=== PATIENT | female | born 1940 | race Caucasian/White ===

== ENCOUNTER 2018-11-05 19:24 | Emergency (ER) | payer MEDICARE ==
[~2018-11-05] VITALS: Ht 157.5 cm; Wt 61.2 kg
[2018-11-05] MEDS ORDERED: CITA20 PO (19:59)
[2018-11-05] MEDS ORDERED: LOSARTAN-HCTZ1 EAC1 PO (19:59)
[2018-11-05] MEDS ORDERED: SIMV40 PO (19:59)
[2018-11-05] MEDS ORDERED: PANT40 PO (19:59)
[2018-11-05] MEDS ORDERED: Protonix40 MG PO (20:31)
== END 2018-11-05 20:38 | disposition home or self-care (01) ==
LOC: ER 19:24
DX: K44.9 Diaphragmatic hernia without obstruction or gangrene (principal); Z88.1 Allergy status to other antibiotic agents; Z79.899 Other long term (current) drug therapy; I10 Essential (primary) hypertension; Z87.891 Personal history of nicotine dependence
CPT/HCPCS: 99281

== ENCOUNTER 2018-11-20 18:27 | Emergency (ER) | payer MEDICARE ==
[~2018-11-20] VITALS: Ht 157.5 cm; Wt 63.5 kg
[~2018-11-20 18:27] MED LIST: CITA20 PO; LOSARTAN-HCTZ1 EAC1 PO; PANT40 PO; Protonix40 MG PO; SIMV40 PO
[2018-11-21] MEDS ORDERED: Norco 5-325 Ta1 EACH PO (00:54)
== END 2018-11-21 01:10 | disposition home or self-care (01) ==
LOC: ER 18:27
DX: S52.501A Unspecified fracture of the lower end of right radius, initial encounter for closed fracture (principal); I10 Essential (primary) hypertension; Z88.1 Allergy status to other antibiotic agents; Z79.899 Other long term (current) drug therapy; Z87.891 Personal history of nicotine dependence; W19.XXXA Unspecified fall, initial encounter
CPT/HCPCS: 29105; 73090; 73110; 73502; 73564; 99283-25; A9270; A9270-GY

== ENCOUNTER → 2019-03-13 | Outpatient (CLI) | payer MEDICARE ==
[~2019-03-13] MED LIST changes: +Norco 5-325 Ta1 EACH PO
[2019-03-13 12:42] LABS: BASOPHILS ABSOLUTE AUTO 0.02 K/mm3 (0.00-0.23); BASOPHILS PERCENT AUTO 0 % (0-2); EOSINOPHILS ABSOLUTE AUTO 0.15 K/mm3 (0.00-0.68); EOSINOPHILS PERCENT AUTO 2 % (0-6); Hematocrit 31.3 % (33.0-51.0); Hemoglobin 10.4 g/dL (11.5-16.0); IMMATURE GRAN ABSOLUTE AUTO 0.05 K/mm3 (0.00-0.10); IMMATURE GRAN PERCENT AUTO 1 % (0-1); LYMPHOCYTES ABSOLUTE AUTO 1.23 K/mm3 (0.84-5.20); LYMPHOCYTES PERCENT AUTO 15 % (21-46); MONOCYTES ABSOLUTE AUTO 0.62 K/mm3 (0.16-1.47); MONOCYTES PERCENT AUTO 8 % (4-13); Mean Corpuscular HGB Conc 33.2 g/dL (31.5-36.5); Mean Corpuscular Volume 96 fL (80-100); Mean Platelet Volume 9.6 fL (9.1-12.4); NEUTROPHILS ABSOLUTE AUTO 5.91 K/mm3 (1.96-9.15); NEUTROPHILS PERCENT AUTO 74 % (41-73); Platelet Count 251 K/mm3 (150-400); RDW Coefficient Variation 13.7 % (11.7-14.2); RDW Standard Deviation 48.4 fL (35.1-46.3); Red Blood Cell Count 3.25 M/mm3 (3.80-5.20); White Blood Cell Count 7.98 K/mm3 (4.00-11.30)
[2019-03-13 13:19] LABS: Alanine Aminotransfer (ALT/SGP 19 U/L (12-78); Albumin, Blood 3.1 g/dL (3.4-5.0); Albumin/Globulin Ratio 0.8 (0.8-1.8); Alk Phos 54 U/L (50-136); Anion Gap 5 mmol/L (6-16); Aspartate Aminotrans (AST/SGOT 31 U/L (12-37); Bilirubin, Total 1.1 mg/dL (0.1-1.0); Blood Urea Nitrogen 14 mg/dL (8-24); Bun/Creatinine Ratio 29.5 (12.0-20.0); CO2, Blood 31 mmol/L (21-32); Calcium, Blood 9.3 mg/dL (8.5-10.1); Chloride, Blood 98 mmol/L (98-108); Creatinine, Blood 0.48 mg/dL (0.40-1.00); Globulin, Blood 3.9 g/dL (2.2-4.0); Glomerular Filtration Rate >60 (60-); Glucose, Blood 89 mg/dL (70-99); Potassium, Blood 3.8 mmol/L (3.5-5.5); Sodium, Blood 134 mmol/L (136-145)
== END | disposition home or self-care (01) ==
LOC: LAB UVN 12:33 → EDSTATUS 13:08
DX: E78.5 Hyperlipidemia, unspecified (principal); I10 Essential (primary) hypertension
CPT/HCPCS: 80053; 85025

== ENCOUNTER → 2019-04-02 | Outpatient (CLI) | payer MEDICARE | END | disposition home or self-care (01) | LOC: LAB SHORT 17:40 → LAB SRC 17:40 → LAB SHORT 04-03 08:21 | DX: S72.001D Fracture of unspecified part of neck of right femur, subsequent encounter for closed fracture with routine healing (principal) | CPT/HCPCS: 87070; 87075; 87205 ==

== ENCOUNTER 2019-09-14 11:58 | Emergency (ER) | payer MEDICARE ==
[~2019-09-14] VITALS: Ht 157.5 cm; Wt 63.5 kg
[2019-09-14] MEDS ORDERED: HYDR1TAB94 PO (14:10)
== END 2019-09-14 15:22 | disposition home or self-care (01) ==
LOC: ER 11:58
DX: S52.501A Unspecified fracture of the lower end of right radius, initial encounter for closed fracture (principal); I10 Essential (primary) hypertension; Z88.2 Allergy status to sulfonamides; Z88.1 Allergy status to other antibiotic agents; Z79.899 Other long term (current) drug therapy; Z87.891 Personal history of nicotine dependence; W01.0XXA Fall on same level from slipping, tripping and stumbling without subsequent striking against object, initial encounter
CPT/HCPCS: 25605; 73110; 99283-25; A9270-GY

== ENCOUNTER 2019-09-18 06:02 | Day surgery (SDC) | payer MEDICARE ==
[~2019-09-18] VITALS: Ht 157.5 cm; Wt 65.5 kg
[~2019-09-18 06:02] MED LIST changes: +HYDR1TAB94 PO
== END 2019-09-18 10:56 | disposition home or self-care (01) ==
LOC: ORSCMMR 06:02 → ORD 11:45 → ORSCMMR 11:45
PROVIDERS: Orthopaedic Surgery
PROC: 0PSH04Z Reposition Right Radius with Internal Fixation Device, Open Approach (ICD-10-PCS; principal; 2019-09-18 07:30)
DX: S52.501A Unspecified fracture of the lower end of right radius, initial encounter for closed fracture (principal); I10 Essential (primary) hypertension; G47.33 Obstructive sleep apnea (adult) (pediatric); Z79.899 Other long term (current) drug therapy
CPT/HCPCS: 73110; C1713; J0330; J0690; J1100; J2250; J2405; J2704; J2710; J3010; J7120

== ENCOUNTER 2020-02-08 06:09 | Day surgery (SDC) | payer MEDICARE ==
[~2020-02-08] VITALS: Ht 157.5 cm; Wt 66.0 kg
[~2020-02-08 06:09] MED LIST changes: +ALEN70 PO; +FAMO20 PO; +IBUP800 PO; +Micardis80 MG PO; +SODCHL1 PO
[2020-02-08] MEDS ORDERED: FAMO20 PO (06:40)
--- NOTE | 2020-02-08 07:04 | NUR ---
Patient up to Ambulate independently. Gait steady. Surgical site prepped with 2% Chlorhexidine cloth wipe. History, Chart, Medications and Allergies reviewed before start of procedure. Lungs clear T/O to Auscultation. Patient confirms NPO status and agrees with scheduled surgery. Pre-Op teaching done. Pt verbalizes understanding. Patient reports completing Chlorhexadine shower X2 prior to admission to hospital.
--- NOTE | 2020-02-08 09:15 | NUR ---
02/08/20 0915 Morales [place] UNABLE TO CHART MEDS. PROFILE LOCKED. ANCEF 2GM GIVEN BY [email or web address] AT 0745. COCKTAIL INJECTED RIGHT KNEE AT 0913. TXA IV GIVEN AT 0914 BY [email or web address]. IV RIGHT ARM.
--- NOTE | 2020-02-08 11:14 | NUR ---
PT ARRIVED TO THE ROOM FROM PACU AT APPROXIMATELY 1045. PT IS DROWSY, BUT AWAKENS WHEN SPOKEN TO AND IS ORIENTED. SHE DENIES PAIN. SHE IS ABLE TO FLEX HER QUADRICEP MUSCLES SLIGHTLY BUT HAS DECREASED SENSATION TO BLE. SINCE PT IS DROWSY RT WAS CONTACTED TO SET UP HER HOME CPAP AND PLACE CONTINUOUS PULSE OXIMETRY. WILL CONTINUE TO MONITOR.
--- NOTE | 2020-02-08 17:14 | NUR ---
POD0 TKA ROBOTIC TRANSFERED AT 1045. PT DROWSY UPON TRANSFERNG FORM PACU TO SURG FLOOR. PT ON 3L O2, W/ HX APNEA. CPAP REQUESTED FROM RESP THERAPIST. SHE IS ON CPAP AT SLEEP. 02 SATS ON 85 TO 90 ON RA AT REST. PAIN LEVEL AT 6/10, WELL CONTROLLED WITH TORADOL, JOHNNY AND TYLENOL, DECREASED AT 3/10. PT ABLE TO WIGGLE BILAT TOES. ABLE TO AMBULATE WITH MINIMAL ASSIST W/ SUPERVISION FROM BED TO BEDSIDE COMMODE, TOLERATE WELL. UA OUTPUT OF 1100 ML. REG DIET, ABLE TO TOLERATE CEREAL, MILK AND COFFEE DENIES N/V. PT USES CANE/WALKER AT HOME, LIVES ALONE AT [facility]. PT WANTS HER DAUGHTERS PRESENCE WHEN PHYSICIAN AND THERAPIST COME IN FOR HER CARE.
--- NOTE | 2020-02-08 17:49 | NUR ---
SHIFT SUMMARY PT IS POD#0 FROM A R ROBOTIC TKA WITH DR. CRUZ. PT HAS BEEN ABLE TO WORK WITH THERAPY. SHE IS A 1 PERSON ASSIST WITH GAIT BELT AND WALKER FOR AMBULATION. PAIN HAS BEEN MANAGED WITH OXYCODONE, TYLENOL AND TORADOL. PT IS TOLERATING PO AND SHE HAS BEEN ABLE TO VOID. VSS. DOCUMENTATION BY WILLY ERICKSON REVIEWED. WILL MONITOR UNTIL REPORT TO ONCOMING RN.
[2020-02-09 04:24] LABS: BASOPHILS ABSOLUTE AUTO 0.01 K/mm3 (0.00-0.23); BASOPHILS PERCENT AUTO 0 % (0-2); EOSINOPHILS PERCENT AUTO 0 % (0-6); Hematocrit 33.8 % (33.0-51.0); IMMATURE GRAN ABSOLUTE AUTO 0.05 K/mm3 (0.00-0.10); IMMATURE GRAN PERCENT AUTO 0 % (0-1); LYMPHOCYTES ABSOLUTE AUTO 1.04 K/mm3 (0.84-5.20); LYMPHOCYTES PERCENT AUTO 9 % (21-46); MONOCYTES ABSOLUTE AUTO 0.64 K/mm3 (0.16-1.47); MONOCYTES PERCENT AUTO 5 % (4-13); Mean Corpuscular HGB 32.2 pg (26.0-34.0); Mean Corpuscular HGB Conc 32.5 g/dL (31.5-36.5); Mean Corpuscular Volume 99 fL (80-100); Mean Platelet Volume 11.4 fL (9.1-12.4); NEUTROPHILS ABSOLUTE AUTO 10.49 K/mm3 (1.96-9.15); NEUTROPHILS PERCENT AUTO 86 % (41-73); Platelet Count 127 K/mm3 (150-400); RDW Coefficient Variation 13.2 % (11.7-14.2); RDW Standard Deviation 48.1 fL (35.1-46.3); Red Blood Cell Count 3.42 M/mm3 (3.80-5.20); White Blood Cell Count 12.23 K/mm3 (4.00-11.30)
--- NOTE | 2020-02-09 04:30 | NUR ---
SHIFT SUMMARY R ROBOTIC ASSIST TKA, A/O, VSS, AMBULATES WELL INDEPENDENTLY W/ 1 PERSON STANDBY ASSIST WHEN UP, TOLERATING PO, VOIDING WELL, USES CALL LIGHT APPROPRIATLY. REQUESTED DAUGHTER BE HERE FOR PT TODAY AND WHEN DR ROUNDS. CPAP ON WHEN IN BED, 3L O2 IN USE W/ CPAP TO MAINTAIN O2 SAT OVER 96. CALL LIGHT IN REACH, WILL REPORT TO ONCOMING DAY RN.
[2020-02-09 04:42] LABS: Anion Gap 4 mmol/L (6-16); Blood Urea Nitrogen 14 mg/dL (8-24); Bun/Creatinine Ratio 27.8 (12.0-20.0); CO2, Blood 28 mmol/L (21-32); Chloride, Blood 103 mmol/L (98-108); Glomerular Filtration Rate >60 (60-); Glucose, Blood 118 mg/dL (70-99); Magnesium, Blood 2.1 mg/dL (1.6-2.4); Potassium, Blood 4.1 mmol/L (3.5-5.5); Sodium, Blood 135 mmol/L (136-145)
[2020-02-09] MEDS ORDERED: ACET500 PO (09:14)
[2020-02-09] MEDS ORDERED: Aspirin EC81 MG PO (09:15)
[2020-02-09] MEDS ORDERED: OXYC5 PO (09:15)
--- NOTE | 2020-02-09 10:27 | NUR ---
PT WOULD LIKE TO STAY UNTIL NOON, DAUGHTER WILL RAN SOME ERRANDS AND WILL COME BACK AROUND NOON TO TAKE HER HOME. PT WOULD LIKE TO REQUEST HER LAST PAIN MEDS AT NOON AND LUNCH PRIOR TO LEAVING.
--- NOTE | 2020-02-09 14:38 | NUR ---
DISCHARGE PT PROVIDED WITH WRITTEN AND VERBAL DISCHARGE INSTRUCTIONS, PT VERBALIZED UNDERSTANDING. DRESSINGS AND PRECRIPTIONS SUPPLIED TO PT. PT ESCORTED OUT IN W/C BY BRIGIDA MÉNDEZ.
== END 2020-02-09 13:13 | disposition home or self-care (01) ==
LOC: ORSCMMR 06:09 → ORD 07:30 → SURS 10:50 → ORSCMMR 02-09 13:13
PROVIDERS: Orthopaedic Surgery
PROC: 0SRC0J9 Replacement of Right Knee Joint with Synthetic Substitute, Cemented, Open Approach (ICD-10-PCS; principal; 2020-02-08 07:30)
PROC: 8E0Y0CZ Robotic Assisted Procedure of Lower Extremity, Open Approach (ICD-10-PCS; principal; 2020-02-08 07:30)
DX: M17.11 Unilateral primary osteoarthritis, right knee (principal); G47.33 Obstructive sleep apnea (adult) (pediatric); K21.9 Gastro-esophageal reflux disease without esophagitis; F32.9 Major depressive disorder, single episode, unspecified; I10 Essential (primary) hypertension; Z79.899 Other long term (current) drug therapy
CPT/HCPCS: 27447; S2900; 36415; 73560-RT; 80048; 83735; 85025; 88300; 94762; 97110; 97116; 97162; 97530; A9270-GY; C1713; C1776; J0171; J0690; J0735; J1100; J1885; J2250; J2405; J2704; J2795; J3010; J7120

== ENCOUNTER 2020-06-15 14:15 | Observation (INO) | payer MEDICARE ==
[~2020-06-15] VITALS: Ht 157.5 cm; Wt 66.5 kg
[~2020-06-15 14:15] MED LIST changes: +ACET500 PO; -ALEN70 PO; -CITA20 PO; -IBUP800 PO; -Micardis80 MG PO; +OXYC5 PO; -SIMV40 PO
[2020-06-15 14:34] LABS: BASOPHILS ABSOLUTE AUTO 0.01 K/mm3 (0.00-0.23); BASOPHILS PERCENT AUTO 0 % (0-2); EOSINOPHILS ABSOLUTE AUTO 0.03 K/mm3 (0.00-0.68); EOSINOPHILS PERCENT AUTO 0 % (0-6); Hematocrit 33.1 % (33.0-51.0); Hemoglobin 10.8 g/dL (11.5-16.0); IMMATURE GRAN ABSOLUTE AUTO 0.02 K/mm3 (0.00-0.10); IMMATURE GRAN PERCENT AUTO 0 % (0-1); LYMPHOCYTES ABSOLUTE AUTO 1.71 K/mm3 (0.84-5.20); LYMPHOCYTES PERCENT AUTO 25 % (21-46); MONOCYTES PERCENT AUTO 6 % (4-13); Mean Corpuscular HGB 30.9 pg (26.0-34.0); Mean Corpuscular HGB Conc 32.6 g/dL (31.5-36.5); Mean Corpuscular Volume 95 fL (80-100); Mean Platelet Volume 10.6 fL (9.1-12.4); NEUTROPHILS ABSOLUTE AUTO 4.62 K/mm3 (1.96-9.15); NEUTROPHILS PERCENT AUTO 68 % (41-73); Platelet Count 165 K/mm3 (150-400); RDW Coefficient Variation 14.2 % (11.7-14.2); RDW Standard Deviation 49.5 fL (35.1-46.3); White Blood Cell Count 6.79 K/mm3 (4.00-11.30)
[2020-06-15 14:54] LABS: Alanine Aminotransfer (ALT/SGP 15 U/L (12-78); Albumin, Blood 2.9 g/dL (3.4-5.0); Albumin/Globulin Ratio 0.9 (0.8-1.8); Alk Phos 49 U/L (50-136); Anion Gap 8 mmol/L (6-16); Aspartate Aminotrans (AST/SGOT 18 U/L (12-37); Bilirubin, Total 0.3 mg/dL (0.1-1.0); Blood Urea Nitrogen 53 mg/dL (8-24); Bun/Creatinine Ratio 91.5 (12.0-20.0); CO2, Blood 27 mmol/L (21-32); Calcium, Blood 8.3 mg/dL (8.5-10.1); Chloride, Blood 105 mmol/L (98-108); Creatinine, Blood 0.58 mg/dL (0.40-1.00); Globulin, Blood 3.2 g/dL (2.2-4.0); Glomerular Filtration Rate >60 (60-); Glucose, Blood 131 mg/dL (70-99); Potassium, Blood 4.2 mmol/L (3.5-5.5); Sodium, Blood 140 mmol/L (136-145); Total Protein, Blood 6.1 g/dL (6.4-8.2)
[2020-06-15] MEDS ORDERED: FAMO20 PO (15:28)
[2020-06-15] MEDS ORDERED: Micardis80 MG PO (15:28)
[2020-06-15] MEDS ORDERED: CITA20 PO (15:28)
[2020-06-15] MEDS ORDERED: SIMV40 PO (15:29)
[2020-06-15] MEDS ORDERED: ALEN70 PO (15:29)
[2020-06-15] MEDS ORDERED: Aspirin EC81 MG PO (16:32)
[2020-06-15] MEDS ORDERED: IBUP800 PO (16:32)
[2020-06-15 17:03] LABS: Hematocrit 32.5 % (33.0-51.0); Hemoglobin 10.5 g/dL (11.5-16.0)
--- NOTE | 2020-06-15 18:13 | NUR ---
SUMMARY PT ADMITTED FROM THE ER, ALERT AND ORIENTED, ABLE TO STAND AND TRANSFER TO THE BED FROM [facility], PT DENIES DIZZINESS, CONSULT CALLED TO DR HOWE FOR GI, ORIENTED PT TO ROOM AND CALL SYSTEM, VSS, WILL CONT TO MONITOR
[2020-06-15 22:23] LABS: Hematocrit 28.2 % (33.0-51.0); Hemoglobin 9.1 g/dL (11.5-16.0)
[2020-06-16 04:34] LABS: Hematocrit 26.9 % (33.0-51.0); Hemoglobin 8.9 g/dL (11.5-16.0)
[2020-06-16 04:41] LABS: Anion Gap 4 mmol/L (6-16); Blood Urea Nitrogen 24 mg/dL (8-24); Bun/Creatinine Ratio 51.2 (12.0-20.0); CO2, Blood 26 mmol/L (21-32); Calcium, Blood 7.9 mg/dL (8.5-10.1); Chloride, Blood 114 mmol/L (98-108); Creatinine, Blood 0.47 mg/dL (0.40-1.00); Glomerular Filtration Rate >60 (60-); Glucose, Blood 87 mg/dL (70-99); Potassium, Blood 3.7 mmol/L (3.5-5.5); Sodium, Blood 144 mmol/L (136-145)
--- NOTE | 2020-06-16 04:49 | NUR ---
SHIFT SUMMARY PT A/O. PLEASANT AND COOPERATIVE. NO BOWEL MOVEMENTS THIS EVENING BUT DECLINE IN HGB FROM 10.5 TO 9.1 TO 8.9. PER MOST RECENT DOCTOR'S NOTE, ONLY TO TRANSFUSE IF HGB DROPS BELOW 7. PT ASYMPTOMATIC. HAS DENIED ANY DIZZINESS OR LIGHT HEADEDNESS. PT DOES REPORT FEELING "A LITTLE FOGGY". PLAN FOR SCOPE LATE TOMORROW. PT ON CLEAR LIQUIDS THIS EVENING. TOLERATING WELL. NO COMPLAINTS OF ABD PAIN OR N/V. NS AND PROTONIX DRIP TRANSFUSING THROUGHOUT THE NIGHT. VITAL SIGNS STABLE. WILL CONTINUE TO MONITOR AND REPORT TO DAY RN.
[2020-06-16 10:13] LABS: Hematocrit 27.5 % (33.0-51.0); Hemoglobin 8.8 g/dL (11.5-16.0)
[2020-06-16 12:11] LABS: Influenza A, PCR Negative (NEGATIVE); Influenza B, PCR Negative (NEGATIVE); Resp Syncytial Virus, PCR Negative (NEGATIVE); SARS-Cov-2 (COVID-19) PCR, MMC Negative (NEGATIVE)
--- NOTE | 2020-06-16 14:40 | NUR ---
History, Chart, Medications and Allergies reviewed before start of procedure.Lungs clear T/O to Auscultation. Patient confirms NPO status and agrees with scheduled surgery. REPORT FROM KIKI COSBY RN.LEFT ALL PT BELONINGS IN ROOM.
--- NOTE | 2020-06-16 14:57 | NUR ---
06/16/20 1457 MARC SCHNEIDER History, Chart, Medications and Allergies reviewed before start of procedure. 3-LEAD EKG REVIEWED WITH PHYSICIAN PRIOR TO START OF PROCEDURE. O2 VIA N/C INTACT THROUGHOUT SEDATION/PROCEDURE. MONITOR INTACT WITH CONTINUOUS PULSE OXIMETRY AND INTERMITTENT BP. PATIENT DETERMINED TO BE ASA APPROPRIATE FOR PROPOFOL SEDATION PRIOR TO START OF PROCEDURE BY .
--- NOTE | 2020-06-16 15:31 | NUR ---
DR. HOWE SPEAKING WITH PT REGARDING PROCEDURE RESULTS.
[2020-06-16] MEDS ORDERED: ACET325 PO (16:44)
[2020-06-16] MEDS ORDERED: OMEP20ER PO (16:45)
--- NOTE | 2020-06-16 17:30 | NUR ---
PATIENT D/C'D TO HOME WITH DAUGHTER. RX MEDICATIONS FAXED TO [facility]. DC INSTRUCTIONS AND EDUCATION DISCUSSED WITH PATIENT AND COPY PROVIDED. PATIENT DENIES ANY FURTHER QUESTIONS OR CONCERNS.
== END 2020-06-16 17:33 | disposition home or self-care (01) ==
LOC: ER 14:15 → MEDS 14:16
PROVIDERS: Emergency Medicine; Internal Medicine Gastroenterology; ADMIT Internal Medicine
PROC: 30233N1 Transfusion of Nonautologous Red Blood Cells into Peripheral Vein, Percutaneous Approach (ICD-10-PCS; principal; 2020-06-16 15:00)
DX: K25.4 Chronic or unspecified gastric ulcer with hemorrhage (principal); T39.015A Adverse effect of aspirin, initial encounter; T39.315A Adverse effect of propionic acid derivatives, initial encounter; D62 Acute posthemorrhagic anemia; K21.9 Gastro-esophageal reflux disease without esophagitis; K44.9 Diaphragmatic hernia without obstruction or gangrene; I10 Essential (primary) hypertension; M19.90 Unspecified osteoarthritis, unspecified site; G47.33 Obstructive sleep apnea (adult) (pediatric); E78.5 Hyperlipidemia, unspecified; F32.9 Major depressive disorder, single episode, unspecified; Z90.722 Acquired absence of ovaries, bilateral; Z88.1 Allergy status to other antibiotic agents; Z88.2 Allergy status to sulfonamides; Z79.82 Long term (current) use of aspirin; Z79.899 Other long term (current) drug therapy; Z87.891 Personal history of nicotine dependence; Z20.822 Contact with and (suspected) exposure to COVID-19; Z23 Encounter for immunization
CPT/HCPCS: 0241U; 36415; 80048; 80053; 82272; 85014; 85018; 85025; 88305; 88342; 93005; 93010; 96361; 96365; 96376; 99285-25; A9270; C9113; G0378; J2704; J7030; J7120

== ENCOUNTER 2021-02-04 20:43 | Emergency (ER) | payer MEDICARE ==
[~2021-02-04] VITALS: Ht 157.5 cm; Wt 65.8 kg
[~2021-02-04 20:43] MED LIST changes: +ACET325 PO; +ALEN70 PO; +Aspirin EC81 MG PO; +CITA20 PO; +IBUP800 PO; +Micardis80 MG PO; +OMEP20ER PO; +SIMV40 PO
== END 2021-02-04 23:20 | disposition home or self-care (01) ==
LOC: ER 20:43
DX: S09.90XA Unspecified injury of head, initial encounter (principal); I10 Essential (primary) hypertension; S00.12XA Contusion of left eyelid and periocular area, initial encounter; S00.81XA Abrasion of other part of head, initial encounter; S00.31XA Abrasion of nose, initial encounter; Z88.2 Allergy status to sulfonamides; Z88.1 Allergy status to other antibiotic agents; Z79.899 Other long term (current) drug therapy; Z85.820 Personal history of malignant melanoma of skin; Z87.891 Personal history of nicotine dependence; W19.XXXA Unspecified fall, initial encounter
CPT/HCPCS: 70450; 72125; 99283-25; A9270

== ENCOUNTER 2021-11-10 11:20 | Emergency (ER) | payer MEDICARE ==
[~2021-11-10] VITALS: Ht 157.5 cm; Wt 66.2 kg
[2021-11-10 15:22] LABS: Influenza A, PCR NEGATIVE (NEGATIVE); Influenza B, PCR NEGATIVE (NEGATIVE); Resp Syncytial Virus, PCR NEGATIVE (NEGATIVE); SARS-Cov-2 (COVID-19) PCR, MMC NEGATIVE (NEGATIVE)
== END 2021-11-10 15:37 | disposition short-term general hospital (02) ==
LOC: ER 11:20
PROVIDERS: Emergency Medicine
DX: S72.401A Unspecified fracture of lower end of right femur, initial encounter for closed fracture (principal); M97.11XA Periprosthetic fracture around internal prosthetic right knee joint, initial encounter; S82.832A Other fracture of upper and lower end of left fibula, initial encounter for closed fracture; I10 Essential (primary) hypertension; Z87.891 Personal history of nicotine dependence; Z88.1 Allergy status to other antibiotic agents; W01.0XXA Fall on same level from slipping, tripping and stumbling without subsequent striking against object, initial encounter; Y92.9 Unspecified place or not applicable; Z88.2 Allergy status to sulfonamides; Z79.899 Other long term (current) drug therapy; Z20.822 Contact with and (suspected) exposure to COVID-19
CPT/HCPCS: 0241U; 51702; 73560-LT; 73560-RT; J1170; J7030

== ENCOUNTER → 2022-01-17 | Outpatient (CLI) | payer MEDICARE ==
[2022-01-17 15:19] LABS: BASOPHILS ABSOLUTE AUTO 0.02 K/mm3 (0.00-0.23); BASOPHILS PERCENT AUTO 0 % (0-2); EOSINOPHILS PERCENT AUTO 2 % (0-6); Hematocrit 41.5 % (33.0-51.0); Hemoglobin 12.7 g/dL (11.5-16.0); IMMATURE GRAN ABSOLUTE AUTO 0.01 K/mm3 (0.00-0.10); IMMATURE GRAN PERCENT AUTO 0 % (0-1); LYMPHOCYTES ABSOLUTE AUTO 1.79 K/mm3 (0.84-5.20); LYMPHOCYTES PERCENT AUTO 36 % (21-46); MONOCYTES ABSOLUTE AUTO 0.45 K/mm3 (0.16-1.47); MONOCYTES PERCENT AUTO 9 % (4-13); Mean Corpuscular HGB 26.7 pg (26.0-34.0); Mean Corpuscular HGB Conc 30.6 g/dL (31.5-36.5); Mean Corpuscular Volume 87 fL (80-100); Mean Platelet Volume 10.2 fL (9.1-12.4); NEUTROPHILS ABSOLUTE AUTO 2.65 K/mm3 (1.96-9.15); NEUTROPHILS PERCENT AUTO 53 % (41-73); Platelet Count 264 K/mm3 (150-400); RDW Coefficient Variation 16.8 % (11.7-14.2); RDW Standard Deviation 54.5 fL (35.1-46.3); Red Blood Cell Count 4.76 M/mm3 (3.80-5.20); White Blood Cell Count 5.02 K/mm3 (4.00-11.30)
[2022-01-17 15:59] LABS: Albumin, Blood 3.6 g/dL (3.4-5.0); Albumin/Globulin Ratio 0.9 (0.8-1.8); Bilirubin, Total 0.5 mg/dL (0.1-1.0); Bun/Creatinine Ratio 28.6 (12.0-20.0); Calcium, Blood 9.2 mg/dL (8.5-10.1); Creatinine, Blood 0.42 mg/dL (0.40-1.00); Globulin, Blood 3.9 g/dL (2.2-4.0); Potassium, Blood 4.4 mmol/L (3.5-5.5); Total Protein, Blood 7.5 g/dL (6.4-8.2)
== END | disposition home or self-care (01) ==
LOC: LAB HH 10:40
PROVIDERS: Nurse Practitioner Family
DX: I10 Essential (primary) hypertension (principal); E87.6 Hypokalemia
CPT/HCPCS: 80053; 85025

== ENCOUNTER 2022-09-10 07:23 | Emergency (ER) | payer MEDICARE ==
[~2022-09-10] VITALS: Ht 157.5 cm; Wt 68.0 kg
[2022-09-10 08:40] LABS: Source, Urine Clean Catch
[2022-09-10 08:47] LABS: Appearance, Urine Cloudy (Clear); Bilirubin, Urine Neg (Neg); Blood, Urine 5+ (Neg); Color, Urine Amber (P-Yellow); Glucose Qualitative, Urine Neg (Neg); Ketones, Urine Neg (Neg); Leukocyte Esterase, Urine 3+ (Neg); Nitrite, Urine Pos (Neg); Protein, Urine 3+ (Neg); Specific Gravity, Urine 1.015 (1.003-1.022); Urobilinogen, Urine 1+ (Normal)
[2022-09-10 08:58] LABS: Red Blood Cells, Urine TNTC /hpf (0-2); Squamous Epithelial Cells Mod /hpf (Few)
[2022-09-10 08:59] LABS: Bacteria Mod /hpf; Mucus Mod (0-Heavy)
[2022-09-10] MEDS ORDERED: CEPH500 PO (09:54)
[2022-09-10] MEDS ORDERED: Pyridium100 MG PO (10:08)
== END 2022-09-10 11:05 | disposition home or self-care (01) ==
LOC: ER 07:23
PROVIDERS: Physician Assistant
DX: N39.0 Urinary tract infection, site not specified (principal); I10 Essential (primary) hypertension; Z88.2 Allergy status to sulfonamides; Z88.1 Allergy status to other antibiotic agents; Z79.899 Other long term (current) drug therapy; Z87.891 Personal history of nicotine dependence; Z96.651 Presence of right artificial knee joint
CPT/HCPCS: 81001; 87086; 99283; P9612

== ENCOUNTER → 2023-03-26 | Outpatient (CLI) | payer MEDICARE ==
[~2023-03-26] MED LIST changes: +CEPH500 PO; +Pyridium100 MG PO
[2023-03-26 10:09] LABS: Source, Urine Clean Catch
[2023-03-26 10:46] LABS: Bilirubin, Urine Neg (Neg); Blood, Urine 5+ (Neg); Glucose Qualitative, Urine Neg (Neg); Ketones, Urine Neg (Neg); Leukocyte Esterase, Urine 2+ (Neg); Nitrite, Urine Pos (Neg); Protein, Urine 3+ (Neg); Urobilinogen, Urine NORM (Normal)
[2023-03-26 10:54] LABS: Appearance, Urine Hazy (Clear); Color, Urine Amber (P-Yellow)
[2023-03-26 10:55] LABS: Bacteria Few /hpf; Red Blood Cells, Urine TNTC /hpf (0-2); Squamous Epithelial Cells Not Seen /hpf (Few)
== END ==
LOC: LAB 10:07 → LAB SHORT 10:07
PROVIDERS: Nurse Practitioner Family
DX: R30.0 Dysuria (principal)
CPT/HCPCS: 81001; 87086

== ENCOUNTER 2023-04-02 19:03 | Emergency (ER) | payer MEDICARE ==
[~2023-04-02] VITALS: Ht 157.5 cm; Wt 70.3 kg
[2023-04-02 23:56] LABS: Source, Urine Clean Catch
[2023-04-02 23:59] LABS: Appearance, Urine Cloudy (Clear); Bilirubin, Urine Neg (Neg); Blood, Urine 5+ (Neg); Color, Urine Yellow (P-Yellow); Glucose Qualitative, Urine Neg (Neg); Ketones, Urine Neg (Neg); Leukocyte Esterase, Urine 3+ (Neg); Nitrite, Urine Neg (Neg); Protein, Urine 3+ (Neg); Specific Gravity, Urine 1.025 (1.003-1.022); Urobilinogen, Urine NORM (Normal)
[2023-04-03 00:17] LABS: Bacteria Many /hpf; Squamous Epithelial Cells Mod /hpf (Few); White Blood Cells, Urine TNTC /hpf (0-5)
[2023-04-03 01:00] VITALS: BP 127/83
[2023-04-03 02:22] LABS: BASOPHILS ABSOLUTE AUTO 0.01 K/mm3 (0.00-0.23); BASOPHILS PERCENT AUTO 0 % (0-2); EOSINOPHILS PERCENT AUTO 2 % (0-6); Hematocrit 40.1 % (33.0-51.0); IMMATURE GRAN ABSOLUTE AUTO 0.02 K/mm3 (0.00-0.10); IMMATURE GRAN PERCENT AUTO 0 % (0-1); LYMPHOCYTES ABSOLUTE AUTO 1.73 K/mm3 (0.84-5.20); LYMPHOCYTES PERCENT AUTO 25 % (21-46); MONOCYTES ABSOLUTE AUTO 0.59 K/mm3 (0.16-1.47); MONOCYTES PERCENT AUTO 9 % (4-13); Mean Corpuscular HGB 30.4 pg (26.0-34.0); Mean Corpuscular HGB Conc 32.4 g/dL (31.5-36.5); Mean Corpuscular Volume 94 fL (80-100); Mean Platelet Volume 10.7 fL (9.1-12.4); NEUTROPHILS ABSOLUTE AUTO 4.44 K/mm3 (1.96-9.15); NEUTROPHILS PERCENT AUTO 64 % (41-73); Platelet Count 207 K/mm3 (150-400); RDW Coefficient Variation 15.6 % (11.7-14.2); RDW Standard Deviation 53.5 fL (35.1-46.3); Red Blood Cell Count 4.28 M/mm3 (3.80-5.20); White Blood Cell Count 6.89 K/mm3 (4.00-11.30)
[2023-04-03 02:34] LABS: Calcium, Blood 8.8 mg/dL (8.5-10.1); Creatinine, Blood 0.67 mg/dL (0.40-1.00); Potassium, Blood 4.2 mmol/L (3.5-5.5)
[2023-04-03] MEDS ORDERED: CEPH500 PO (03:17)
== END 2023-04-03 04:07 | disposition home or self-care (01) ==
LOC: ER 19:03
PROVIDERS: Emergency Medicine
DX: N30.91 Cystitis, unspecified with hematuria (principal); I10 Essential (primary) hypertension; Z87.891 Personal history of nicotine dependence
CPT/HCPCS: 80048; 81001; 85025; 87077; 87086; 87186; 93005; 93010; 99283-25

== ENCOUNTER → 2023-06-27 | Outpatient (CLI) | payer MEDICARE ==
[2023-06-27 14:40] LABS: Microalb/Creat Ratio UR, Rand Unable to Calculate mg/g (0.000-30.000); Microalbumin, Random Urine <5.000 mg/L (0.000-20.000)
== END | disposition home or self-care (01) ==
LOC: LAB 11:32 → LAB SHORT 11:32
PROVIDERS: Nurse Practitioner Family
DX: I10 Essential (primary) hypertension (principal); R73.03 Prediabetes; R80.9 Proteinuria, unspecified
CPT/HCPCS: 82043; 82570

== ENCOUNTER 2024-01-29 06:57 | Day surgery (SDC) | payer MEDICARE ==
[~2024-01-29] VITALS: Ht 157.5 cm; Wt 72.4 kg
[~2024-01-29 06:57] MED LIST changes: +Balanced Salt Epinephrine Irrigation Solution 500 mL IR SCH; +CYCL10 PO; +KETO10 PO; +LIDO700A20 TOP; +Lidocaine HCl/Pf 1% 5 ML VIAL ONE; +Lidocaine HCl/Pf 1% 5 ML VIAL XX SCH; +Moxifloxacin HCL 0.5 MG/0.1 ML 0.4MLSYR RIGHTEYE SCH; +NS 500 ML IV ONE; +PHENYLEPHRINE\\TROPICAMIDE\\TETRACAINE OPHTHALMIC DILATING SOLN RIGHTEYE PRN; +Povidone-Iodine 450 DROP/30 ML Solution RIGHTEYE SCH; +Triamcinolone Inj Susp 40 MG / ML 1ML Vial INJ SCH; +Triamcinolone Inj Susp 40 MG / ML 1ML Vial ONE
[2024-01-29] MEDS ORDERED: Aspir 8181 MG PO (07:18)
[2024-01-29] MEDS ORDERED: Lactated Ringer's 1,000 ML IV ONE (07:18)
[2024-01-29] MEDS ORDERED: FentaNYL Citrate 50 MCG/ML 2 ML Injection ONE (07:41)
[2024-01-29] MEDS ORDERED: Midazolam HCl 1MG / ML 2ML Vial ONE (07:41)
--- NOTE | 2024-01-29 09:11 | NUR ---
01/29/24 0911 [place] Ferrell PT'S O2 INITIALLY MAINTAINED 92-96% WITH BREIF DROPS LOW 85%. PT DENIED DIZZINESS, SOB, AND OTHER RESPIRATORY SYMPTOMS. NONE WERE OBSERVED. PT WAS ABLE TO RETURN O2 TO >94% WITH DEEP BREATHS. PT GIVEN INCENTIVE SPIROMETER AND INSTRUCTED IN ITS USE. PT INITIALLY SLEEPY UPON ARRIVAL IN SDU. SHE APPEARED TO BECOME MORE ALERT AFTER MOVING TO RECLINER. CARE TRAN[facility]ERED TO [facility]PR[place]ATELY 0840.
[2024-01-29] MEDS ORDERED: Phenylephrine Frt 10% Opth (ORSC) ONE (09:24)
[2024-01-29 09:30] VITALS: BP 177/78
== END 2024-01-29 09:05 | disposition home or self-care (01) ==
LOC: ORSCSDS 06:57
PROVIDERS: Ophthalmology
PROC: 08RJ3JZ Replacement of Right Lens with Synthetic Substitute, Percutaneous Approach (ICD-10-PCS; principal; 2024-01-29 08:00)
DX: H25.811 Combined forms of age-related cataract, right eye (principal); H35.30 Unspecified macular degeneration; I10 Essential (primary) hypertension; E78.5 Hyperlipidemia, unspecified; G47.33 Obstructive sleep apnea (adult) (pediatric); F32.A Depression, unspecified; K21.9 Gastro-esophageal reflux disease without esophagitis; Z79.82 Long term (current) use of aspirin; Z79.899 Other long term (current) drug therapy
CPT/HCPCS: J2001; J2250; J3010; J3301; J7040; V2632

== ENCOUNTER 2024-02-06 06:54 | Day surgery (SDC) | payer MEDICARE ==
[~2024-02-06] VITALS: Ht 157.5 cm; Wt 72.0 kg
[~2024-02-06 06:54] MED LIST changes: +Aspir 8181 MG PO; +Moxifloxacin HCL 0.5 MG/0.1 ML 0.4MLSYR LEFTEYE SCH; -Moxifloxacin HCL 0.5 MG/0.1 ML 0.4MLSYR RIGHTEYE SCH; +PHENYLEPHRINE\\TROPICAMIDE\\TETRACAINE OPHTHALMIC DILATING SOLN LEFTEYE PRN; -PHENYLEPHRINE\\TROPICAMIDE\\TETRACAINE OPHTHALMIC DILATING SOLN RIGHTEYE PRN; +Povidone-Iodine 450 DROP/30 ML Solution LEFTEYE SCH; -Povidone-Iodine 450 DROP/30 ML Solution RIGHTEYE SCH
[2024-02-06] MEDS ORDERED: NS 500 ML IV ONE (07:09)
[2024-02-06] MEDS ORDERED: Midazolam HCl 1MG / ML 2ML Vial ONE (07:44)
[2024-02-06 08:19] VITALS: BP 163/77
== END 2024-02-06 08:38 | disposition home or self-care (01) ==
LOC: ORSCSDS 06:54
PROVIDERS: Ophthalmology
PROC: 08RK3JZ Replacement of Left Lens with Synthetic Substitute, Percutaneous Approach (ICD-10-PCS; principal; 2024-02-06 08:00)
DX: H25.812 Combined forms of age-related cataract, left eye (principal); Z96.1 Presence of intraocular lens; H35.30 Unspecified macular degeneration; K21.9 Gastro-esophageal reflux disease without esophagitis; I10 Essential (primary) hypertension; E78.5 Hyperlipidemia, unspecified; F32.A Depression, unspecified; J44.9 Chronic obstructive pulmonary disease, unspecified; Z79.82 Long term (current) use of aspirin; Z79.899 Other long term (current) drug therapy; Z87.891 Personal history of nicotine dependence; G47.33 Obstructive sleep apnea (adult) (pediatric)
CPT/HCPCS: J2001; J2250; J3301; J7040; V2632

== ENCOUNTER → 2025-01-11 | Outpatient (CLI) | payer MEDICARE ==
[~2025-01-11] MED LIST changes: -Balanced Salt Epinephrine Irrigation Solution 500 mL IR SCH; -Lidocaine HCl/Pf 1% 5 ML VIAL ONE; -Lidocaine HCl/Pf 1% 5 ML VIAL XX SCH; -Moxifloxacin HCL 0.5 MG/0.1 ML 0.4MLSYR LEFTEYE SCH; -NS 500 ML IV ONE; -PHENYLEPHRINE\\TROPICAMIDE\\TETRACAINE OPHTHALMIC DILATING SOLN LEFTEYE PRN; -Povidone-Iodine 450 DROP/30 ML Solution LEFTEYE SCH; -Triamcinolone Inj Susp 40 MG / ML 1ML Vial INJ SCH; -Triamcinolone Inj Susp 40 MG / ML 1ML Vial ONE
== END ==
LOC: LAB 14:00 → LAB SHORT 14:00
DX: R39.89 Other symptoms and signs involving the genitourinary system (principal)
CPT/HCPCS: 87077; 87086; 87186

== ENCOUNTER → 2025-01-29 | Outpatient (CLI) | payer MEDICARE ==
[2025-01-29 11:42] LABS: Source, Urine Clean Catch
[2025-01-29 13:08] LABS: Bilirubin, Urine Neg (Neg); Color, Urine Yellow (P-Yellow); Glucose Qualitative, Urine Neg (Neg); Ketones, Urine Neg (Neg); Leukocyte Esterase, Urine 3+ (Neg); Protein, Urine 1+ (Neg); Specific Gravity, Urine 1.010 (1.003-1.022); Urobilinogen, Urine NORM (Normal)
[2025-01-29 13:17] LABS: White Blood Cells, Urine 50-100 /hpf (0-5)
== END ==
LOC: LAB 11:40 → LAB SHORT 11:40
PROVIDERS: Nurse Practitioner Family
DX: R30.0 Dysuria (principal)
CPT/HCPCS: 81001; 87077; 87086; 87186

== ENCOUNTER 2025-02-21 10:43 | Emergency (ER) | payer MEDICARE ==
[~2025-02-21] VITALS: Ht 157.5 cm; Wt 73.9 kg
[2025-02-21 10:57] VITALS: BP 162/99
[2025-02-21] MEDS ORDERED: NS 500 ML IV SCH (12:25)
[2025-02-21] MEDS ORDERED: Ketorolac Tromethamine 30mg Vial IV ONE (12:25)
[2025-02-21] MEDS ORDERED: FentaNYL Citrate 50 MCG/ML 2 ML Injection IV ONE (12:25)
[2025-02-21 12:40] LABS: BASOPHILS ABSOLUTE AUTO 0.01 K/mm3 (0.00-0.23); BASOPHILS PERCENT AUTO 0 % (0-2); EOSINOPHILS ABSOLUTE AUTO 0.03 K/mm3 (0.00-0.68); EOSINOPHILS PERCENT AUTO 1 % (0-6); Hematocrit 39.8 % (33.0-51.0); Hemoglobin 13.3 g/dL (11.5-16.0); IMMATURE GRAN ABSOLUTE AUTO 0.01 K/mm3 (0.00-0.10); IMMATURE GRAN PERCENT AUTO 0 % (0-1); LYMPHOCYTES ABSOLUTE AUTO 0.90 K/mm3 (0.84-5.20); LYMPHOCYTES PERCENT AUTO 16 % (21-46); MONOCYTES ABSOLUTE AUTO 0.43 K/mm3 (0.16-1.47); MONOCYTES PERCENT AUTO 8 % (4-13); Mean Corpuscular HGB Conc 33.4 g/dL (31.5-36.5); Mean Corpuscular Volume 95 fL (80-100); NEUTROPHILS ABSOLUTE AUTO 4.20 K/mm3 (1.96-9.15); NEUTROPHILS PERCENT AUTO 75 % (41-73); NRBC ABSOLUTE 0.00 K/mm3 (0.00-0.02); NRBC Auto 0.0 /100 WBC (0.0-0.2); Platelet Count 197 K/mm3 (150-400); RDW Coefficient Variation 13.7 % (11.7-14.2); RDW Standard Deviation 48.6 fL (35.1-46.3)
[2025-02-21 13:02] LABS: Alanine Aminotransfer (ALT/SGP 21.0 U/L (12-78); Albumin, Blood 3.4 g/dL (3.4-5.0); Albumin/Globulin Ratio 0.9 (0.8-1.8); Anion Gap 6.0 mmol/L (3-11); Aspartate Aminotrans (AST/SGOT 29.0 U/L (12-37); Bilirubin, Total 0.5 mg/dL (0.1-1.0); Blood Urea Nitrogen 10.0 mg/dL (8-24); CO2, Blood 31.0 mmol/L (21-32); Calcium, Blood 8.3 mg/dL (8.5-10.1); Chloride, Blood 103.0 mmol/L (98-108); Creatinine, Blood 0.55 mg/dL (0.40-1.00); Globulin, Blood 3.6 g/dL (2.2-4.0); Glucose, Blood 95.0 mg/dL (70-99); Potassium, Blood 4.1 mmol/L (3.5-5.5); Sodium, Blood 136.0 mmol/L (136-145); Total Protein, Blood 7.0 g/dL (6.4-8.2)
[2025-02-21] MEDS ORDERED: IBUP400 PO (14:10)
[2025-02-21] MEDS ORDERED: OXYC5 PO (14:10)
== END 2025-02-21 14:15 | disposition home or self-care (01) ==
LOC: ER 10:43
PROVIDERS: Emergency Medicine
DX: S42.292A Other displaced fracture of upper end of left humerus, initial encounter for closed fracture (principal); S42.212A Unspecified displaced fracture of surgical neck of left humerus, initial encounter for closed fracture; S42.412A Displaced simple supracondylar fracture without intercondylar fracture of left humerus, initial encounter for closed fracture; S00.83XA Contusion of other part of head, initial encounter; R55 Syncope and collapse; E86.0 Dehydration; I10 Essential (primary) hypertension; Z87.891 Personal history of nicotine dependence; Z96.611 Presence of right artificial shoulder joint; Z96.651 Presence of right artificial knee joint; Z79.899 Other long term (current) drug therapy; W18.30XA Fall on same level, unspecified, initial encounter
CPT/HCPCS: 73030; 80053; 83735; 83880; 84484; 85025; 93005; 93010; 96374; 96375; 99284-25; A9270; J1885; J3010; J7030

== ENCOUNTER 2025-04-01 11:36 | Emergency (ER) | payer MEDICARE ==
[~2025-04-01] VITALS: Ht 157.5 cm; Wt 72.6 kg
[~2025-04-01 11:36] MED LIST changes: +IBUP400 PO
[2025-04-01 13:38] LABS: Source, Urine Clean Catch
[2025-04-01 13:43] LABS: Bilirubin, Urine Neg (Neg); Color, Urine Yellow (P-Yellow); Glucose Qualitative, Urine Neg (Neg); Ketones, Urine Neg (Neg); Leukocyte Esterase, Urine 3+ (Neg); Protein, Urine 1+ (Neg); Specific Gravity, Urine 1.010 (1.003-1.022); Urobilinogen, Urine NORM (Normal)
[2025-04-01 14:02] LABS: White Blood Cells, Urine 50-100 /hpf (0-5)
[2025-04-01] MEDS ORDERED: CEPH500 PO (14:43)
[2025-04-01] MEDS ORDERED: HYDROcodone 5-APAP 325 TAB PO ONE (14:45)
[2025-04-01 15:16] VITALS: BP 138/83
== END 2025-04-01 15:17 | disposition home or self-care (01) ==
LOC: ER 11:36
PROVIDERS: Emergency Medicine
DX: S09.90XA Unspecified injury of head, initial encounter (principal); N39.0 Urinary tract infection, site not specified; I10 Essential (primary) hypertension; Z87.891 Personal history of nicotine dependence; W18.30XA Fall on same level, unspecified, initial encounter
CPT/HCPCS: 70450; 72125; 73060; 81001; 87077; 87086; 87186; 99284-25; A9270